=== PATIENT | male | born 1935 | race Caucasian/White ===

== ENCOUNTER 2020-07-05 20:36 | Emergency (ER) | payer MEDICARE, BC ==
[~2020-07-05] VITALS: Ht 177.8 cm; Wt 77.1 kg
[~2020-07-05 20:36] MED LIST: DABI150C PO; HYDR-4354 PO; SIMV-49 PO; TAMS0.4C34 PO; VALS1TAB4 PO; WALK1EAC55 MC
--- NOTE | 2020-07-05 20:43 | NUR ---
Patient arrived to ER via [facility] for a mechanical fall on right shoulder, RA states crepitus noted when right shoulder is moved, left hand 18g saline locked IV noted, states pain is 10/10 when shoulder is moved and 0/10 when right shoulder is moved, EKG done at this time and given to MD Adame, patient A&O X4, no signs of acute distress noted
--- NOTE | 2020-07-05 20:43 | NUR ---
MD Adame at bedside for MSE
[2020-07-05] MEDS ORDERED: CARB-93 PO (20:55)
[2020-07-05] MEDS ORDERED: VALS1TAB8 PO (20:55)
[2020-07-05] MEDS ORDERED: ROSU40TA PO (20:55)
[2020-07-05] MEDS ORDERED: APIX2.5T PO (20:55)
[2020-07-05] MEDS ORDERED: MORPHINE SULFATE 2 MG/1 ML DISP.SYRIN IV ONE (21:00)
[2020-07-05] MEDS ORDERED: ONDANSETRON 4 MG/2 ML VIAL IV ONE (21:00)
[2020-07-05] MEDS ORDERED: ONDANSETRON 4 MG/2 ML VIAL ONE (21:07)
[2020-07-05] MEDS ORDERED: MORPHINE SULFATE 2 MG/1 ML DISP.SYRIN ONE ×2 (21:07→21:28)
[2020-07-05 21:22] LABS: BASOPHILS % (AUTO) 0.6 % (0.0-2.0); EOSINOPHILS # (AUTO) 0.1 K/uL (0.0-0.7); EOSINOPHILS % (AUTO) 2.6 % (0.0-7.0); HEMATOCRIT 34.9 % (36.7-47.1); HEMOGLOBIN 11.6 g/dL (12.5-16.3); LYMPHOCYTES # (AUTO) 1.1 K/uL (20.0-40.0); LYMPHOCYTES % (AUTO) 20.6 % (20.5-51.5); MEAN CORPUSCULAR HEMOGLOBIN 32.6 uug (23.8-33.4); MEAN CORPUSCULAR HGB CONC 33 g/dL (32.5-36.3); MEAN CORPUSCULAR VOLUME 98.1 fL (73.0-96.2); MONOCYTES # (AUTO) 0.6 K/uL (2.0-10.0); MONOCYTES % (AUTO) 12.2 % (0.0-11.0); NEUTROPHILS # (AUTO) 3.3 K/uL (1.8-8.9); PLATELET COUNT (AUTO) 154 K/uL (152-348); RED BLOOD CELL COUNT(AUTO) 3.55 MIL/uL (4.06-5.63); WHITE BLOOD COUNT (AUTO) 5.2 K/uL (3.6-10.2)
[2020-07-05 21:29] LABS: CARBON DIOXIDE 24 mmol/L (21-32); CHLORIDE 102 mmol/L (98-107); CREATININE 1.6 mg/dL (0.6-1.3); GLUCOSE 105 mg/dL (74-106); POTASSIUM 3.9 mmol/L (3.5-5.1); UREA NITROGEN, BLOOD 41 mg/dL (7-18)
[2020-07-05] MEDS ORDERED: MORPHINE SULFATE 4 MG/1 ML DISP.SYRIN IV ONE (21:30)
--- NOTE | 2020-07-05 21:32 | NUR ---
PAtient being transported to radiology for Right shoulder X-ray and CT of head
[2020-07-05 21:35] LABS: ALANINE AMINOTRANSFERASE 17 U/L (16-63); ALKALINE PHOSPHATASE 45 U/L (50-136); ASPARTATE AMINOTRANSFERASE 19 U/L (15-37); BILIRUBIN,DIRECT 0.1 mg/dL (0.0-0.2); BILIRUBIN,TOTAL 0.5 mg/dL (0.2-1.0); TOTAL PROTEIN, SERUM 6.8 g/dL (6.4-8.2)
--- NOTE | 2020-07-05 21:46 | NUR ---
patient arrived for Radiology
--- NOTE | 2020-07-05 21:50 | NUR ---
sling applied to right shoulder per MD orders
--- NOTE | 2020-07-05 22:21 | NUR ---
radiology noted taking patient down to get at CT of the chest
--- NOTE | 2020-07-05 23:40 | NUR ---
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
[2020-07-06] MEDS ORDERED: ACETAMINOPHEN ES 500 MG TABLET PO ONE
--- NOTE | 2020-07-06 00:30 | NUR ---
Patient discharged to home in stable condition. Wheeled in wheelchair and assisted to car, picked patient up, rx given, instructed not to drive while taking medication, instructed to follow up with ortho and PCP. Written and verbal after care instructions given. All belongings sent with paatient. Patient verbalizes understanding of instructions. Stressed follow up or return to ER for worsening s/s.
[2020-07-06 00:46] VITALS: BP 144/65
== END 2020-07-06 00:30 | disposition home or self-care (01) ==
LOC: ER 20:38
DX: S42.111A Displaced fracture of body of scapula, right shoulder, initial encounter for closed fracture (principal); W18.30XA Fall on same level, unspecified, initial encounter; Z91.81 History of falling; Y92.89 Other specified places as the place of occurrence of the external cause; G91.2 (Idiopathic) normal pressure hydrocephalus; I48.91 Unspecified atrial fibrillation; Z95.0 Presence of cardiac pacemaker; Z95.2 Presence of prosthetic heart valve; Z79.01 Long term (current) use of anticoagulants; Z79.899 Other long term (current) drug therapy; M25.411 Effusion, right shoulder; M47.9 Spondylosis, unspecified; D64.9 Anemia, unspecified
CPT/HCPCS: 70450; 71250; 72125; 73030; 80048; 80076; 84484; 85025; 85730; 93005; 96374; 96375; 99285; J2270 ×2; J2405; 70030-TC; A4663

== ENCOUNTER 2022-01-05 21:41 | Emergency (ER) | payer MEDICARE, BC ==
[~2022-01-05] VITALS: Ht 172.7 cm; Wt 72.6 kg
[~2022-01-05 21:41] MED LIST changes: +APIX2.5T PO; +CARB-300 PO; -DABI150C PO; -HYDR-4354 PO; +ROSU40TA PO; -SIMV-49 PO; -VALS1TAB4 PO; +VALS1TAB8 PO; -WALK1EAC55 MC
--- NOTE | 2022-01-05 21:43 | NUR ---
pt bib ra for syncope. pt placed in room 1a.
--- NOTE | 2022-01-05 22:25 | NUR ---
pt taken to radiology for cat scan and cxr.
[2022-01-05 22:28] LABS: *BILIRUBIN,URIN NEGATIVE (NEGATIVE); *BLOOD, URINE NEGATIVE (NEGATIVE); *CLARITY,URINE CLEAR (CLEAR); *COLOR,URINE YELLOW (YELLOW); *KETONES,URINE NEGATIVE (NEGATIVE); *UROBILINOGEN,URINE 0.2 E.U./dl (NORMAL); LEUKOCYTE ESTERASE ,URINE NEGATIVE (NEGATIVE); NITRITE, URINE NEGATIVE (NEGATIVE); UGLUCOSE NEGATIVE (NEGATIVE)
[2022-01-05 22:42] LABS: HEMATOCRIT 37.9 % (36.7-47.1); MEAN CORPUSCULAR VOLUME 97.3 fL (73.0-96.2); PLATELET COUNT (AUTO) 184 K/uL (152-348)
--- NOTE | 2022-01-05 22:42 | NUR ---
pt returned from cat scan.
[2022-01-05 22:49] LABS: CARBON DIOXIDE 26 mmol/L (21-32); CHLORIDE 102 mmol/L (98-107); CREATININE 1.2 mg/dL (0.6-1.3); GLUCOSE 109 mg/dL (74-106); UREA NITROGEN, BLOOD 36 mg/dL (7-18)
[2022-01-05 22:53] LABS: ETHANOL 171 MG/DL (0-0)
[2022-01-05 22:54] LABS: ALANINE AMINOTRANSFERASE 21 U/L (16-63); ALKALINE PHOSPHATASE 60 U/L (50-136); ASPARTATE AMINOTRANSFERASE 24 U/L (15-37); BILIRUBIN,DIRECT 0.1 mg/dL (0.0-0.2); BILIRUBIN,TOTAL 0.5 mg/dL (0.2-1.0); TOTAL PROTEIN, SERUM 7.6 g/dL (6.4-8.2)
--- NOTE | 2022-01-06 00:11 | NUR ---
pt has been assisted to side of [facility] several times to urinate, pt has steady gait but needs assist. able to void clear yellow urine.
--- NOTE | 2022-01-06 02:21 | NUR ---
pt a/o denies pain, pt states he wants to go home. Per Dr. Romero pt is medically clear for d/c but his will pick him up in the morning.
--- NOTE | 2022-01-06 03:49 | NUR ---
Dr. Romero speaking with pt.
--- NOTE | 2022-01-06 07:03 | NUR ---
discharge instructions reviewed with pt, waiting for pt's to arrive for his d/c home. Report given to Tiffani STRNOG.
--- NOTE | 2022-01-06 07:33 | NUR ---
Patient is sitting in a chair waiting for his to pick him up. He denies dizziness, chest pain or any other problem.
--- NOTE | 2022-01-06 08:05 | NUR ---
IV removed. Catheter intact and site benign. Pressure and 4x4 gauze applied to site. No bleeding noted.
--- NOTE | 2022-01-06 08:11 | NUR ---
Patient's is here. I wheelchaired him to the car. DC and follow up instructions given and explained to patient who states he understands all instructions
[2022-01-06 08:19] VITALS: BP 127/70
== END 2022-01-06 08:19 | disposition home or self-care (01) ==
LOC: ER 21:42
DX: F10.129 Alcohol abuse with intoxication, unspecified (principal); Z95.0 Presence of cardiac pacemaker; Z79.899 Other long term (current) drug therapy; Y90.0 Blood alcohol level of less than 20 mg/100 ml; Z20.822 Contact with and (suspected) exposure to COVID-19
CPT/HCPCS: 36415; 70030-TC; 70450; 71045; 83605; 85025; 87040; 87086; 93005; A4663; G0480

== ENCOUNTER 2022-02-02 23:37 | Emergency (ER) | payer MEDICARE, BC ==
[~2022-02-02] VITALS: Ht 177.8 cm; Wt 77.1 kg
[2022-02-02] MEDS ORDERED: IV NS 1000 ML 1,000 ML IV ONE (23:45)
[2022-02-03] LABS: HEMATOCRIT 34.8 % (36.7-47.1); MEAN CORPUSCULAR HEMOGLOBIN 33.2 uug (23.8-33.4); MEAN CORPUSCULAR VOLUME 97.3 fL (73.0-96.2); PLATELET COUNT (AUTO) 185 K/uL (152-348)
[2022-02-03 00:05] LABS: CARBON DIOXIDE 22 mmol/L (21-32); CHLORIDE 102 mmol/L (98-107); CREATININE 1.6 mg/dL (0.6-1.3); GLUCOSE 120 mg/dL (74-106); POTASSIUM 3.9 mmol/L (3.5-5.1); UREA NITROGEN, BLOOD 41 mg/dL (7-18)
--- NOTE | 2022-02-03 00:08 | NUR ---
pt taken to CT via tanya
--- NOTE | 2022-02-03 00:18 | NUR ---
pt returned from CT
--- NOTE | 2022-02-03 02:20 | NUR ---
ambulated pt with walker. steady gait. no dizziness. denies pain
--- NOTE | 2022-02-03 03:11 | NUR ---
Sari ye in [facility] - 02/03/22 at 0313 by LINO An attempt to reach patient's has been made, awaiting call back.
--- NOTE | 2022-02-03 03:13 | NUR ---
An attempt to reach patient's has been made, awaiting call back.
--- NOTE | 2022-02-03 04:25 | NUR ---
Patient discharged to home in stable condition. Written and verbal after care instructions given. Patient verbalizes understanding of instructions. Stressed follow up or return to ER for worsening s/s. pt ambulated to car with walker. steady gait. denies pain. no sob. no chest pain. afebrile. AOx4
[2022-02-03 04:43] VITALS: BP 128/63
== END 2022-02-03 04:45 | disposition home or self-care (01) ==
LOC: ER 23:41
DX: I95.9 Hypotension, unspecified (principal); Z04.3 Encounter for examination and observation following other accident; R94.31 Abnormal electrocardiogram [ECG] [EKG]; Z95.0 Presence of cardiac pacemaker; Z95.2 Presence of prosthetic heart valve; Z79.01 Long term (current) use of anticoagulants; Z79.899 Other long term (current) drug therapy; I48.91 Unspecified atrial fibrillation
CPT/HCPCS: 36415; 70450; 84484; 85025; 93005; J7030

== ENCOUNTER 2023-01-06 19:46 | Inpatient (IN) | payer MEDICARE, BC ==
[~2023-01-06] VITALS: Ht 177.8 cm; Wt 69.9 kg
[2023-01-06] MEDS ORDERED: IV NORMAL SALINE 500 ML BAG IV ONE (20:15)
[2023-01-06 20:23] LABS: PLATELET COUNT (AUTO) 142 K/uL (152-348)
[2023-01-06 20:34] LABS: HEMATOCRIT 36.9 % (36.7-47.1); MEAN CORPUSCULAR HEMOGLOBIN 31.7 uug (23.8-33.4); MEAN CORPUSCULAR VOLUME 95.3 fL (73.0-96.2)
[2023-01-06 20:44] LABS: ALANINE AMINOTRANSFERASE 31 U/L (16-63); ALKALINE PHOSPHATASE 48 U/L (50-136); ASPARTATE AMINOTRANSFERASE 65 U/L (15-37); BILIRUBIN,DIRECT 0.2 mg/dL (0.0-0.2); BILIRUBIN,TOTAL 0.9 mg/dL (0.2-1.0); CARBON DIOXIDE 29 mmol/L (21-32); CHLORIDE 100 mmol/L (98-107); CREATININE 1.9 mg/dL (0.6-1.3); GLUCOSE 125 mg/dL (74-106); POTASSIUM 4.6 mmol/L (3.5-5.1); TOTAL PROTEIN, SERUM 7.6 g/dL (6.4-8.2); UREA NITROGEN, BLOOD 50 mg/dL (7-18)
[2023-01-06 21:04] LABS: NEUTROPHILS % (MANUAL) 0 % (42-75)
[2023-01-06] MEDS ORDERED: ASPIRIN 81 MG TAB.CHEW ONE (21:08)
[2023-01-06] MEDS ORDERED: ASPIRIN 81 MG TAB.CHEW PO ONE (21:15)
[2023-01-06] MEDS ORDERED: ACETAMINOPHEN 325 MG TABLET PO PRN (22:30)
[2023-01-06] MEDS ORDERED: MORPHINE SULFATE 2 MG/1 ML DISP.SYRIN IV PRN (22:30)
[2023-01-06] MEDS ORDERED: IV 1/2NS 1000 ML 1,000 ML IV PRN (22:30)
[2023-01-06] MEDS ORDERED: ONDANSETRON 4 MG/2 ML VIAL IV PRN (22:30)
[2023-01-07] MEDS ORDERED: CEFTRIAXONE 1 G in IV DEXTROSE 5% 50 ML IV SCH (00:50)
[2023-01-07] MEDS ORDERED: AZITHROMYCIN IV 500 MG in IV DEXTROSE 5% 250 ML IV SCH (00:51)
[2023-01-07 01:05] VITALS: BP 107/54
[2023-01-07] MEDS: TAMSULOSIN HCL 0.4 MG CAP.SR.24H PO SCH ×2 (01:21→20:04)
[2023-01-07] MEDS ORDERED: AZITHROMYCIN 500MG/ D5W 250ML IVPB **ER PYXIS ONLY IV ONE (02:08)
[2023-01-07] MEDS ORDERED: CEFTRIAXONE /D5W 50ML IVPB **ER PYXIS IV ONE (02:08)
[2023-01-07 04:38] VITALS: BP 104/40
[2023-01-07] MEDS: PANTOPRAZOLE SODIUM 40 MG TABLET.DR PO SCH (06:29)
[2023-01-07 06:40] LABS: HEMATOCRIT 35.1 % (36.7-47.1); MEAN CORPUSCULAR HEMOGLOBIN 31.6 uug (23.8-33.4); MEAN CORPUSCULAR VOLUME 94.9 fL (73.0-96.2); PLATELET COUNT (AUTO) 126 K/uL (152-348)
[2023-01-07 07:14] LABS: IRON, SERUM 21 ug/dL (50-175)
[2023-01-07 07:19] LABS: THYROID STIMULATING HORMONE 1.153 mIU/mL (0.358-3.740)
[2023-01-07 07:30] LABS: ALANINE AMINOTRANSFERASE 25 U/L (16-63); ALKALINE PHOSPHATASE 40 U/L (50-136); ASPARTATE AMINOTRANSFERASE 57 U/L (15-37); BILIRUBIN,TOTAL 0.7 mg/dL (0.2-1.0); CARBON DIOXIDE 26 mmol/L (21-32); CHLORIDE 101 mmol/L (98-107); CHOLESTEROL 119 mg/dL (<200); CREATININE 1.5 mg/dL (0.6-1.3); GLUCOSE 112 mg/dL (74-106); HDL CHOLESTEROL 64 mg/dL (40-60); MAGNESIUM 2.2 mg/dL (1.8-2.4); PHOSPHOROUS 4.3 mg/dL (2.5-4.9); POTASSIUM 3.7 mmol/L (3.5-5.1); TOTAL PROTEIN, SERUM 6.6 g/dL (6.4-8.2); TRIGLYCERIDES 75 MG/DL (30-150); UREA NITROGEN, BLOOD 41 mg/dL (7-18)
[2023-01-07 08:00] VITALS: BP 110/52
[2023-01-07] MEDS ORDERED: Medication Not On Formulary EA (Rosuvastatin Calcium (Crestor) 40 MG) PO SCH (09:00)
[2023-01-07] MEDS: APIXABAN 2.5 MG TABLET PO SCH ×2 (09:24→20:06)
[2023-01-07] MEDS: CARBIDOPA/LEVODOPA 25-100MG TABLET PO SCH ×4 (09:24→20:03)
[2023-01-07] MEDS: ASPIRIN EC 81 MG TABLET.DR PO SCH (09:24)
[2023-01-07 12:00] VITALS: BP 118/78
[2023-01-07 16:00] VITALS: BP 140/66
[2023-01-07 17:22] LABS: BAND % (MANUAL) 2 % (0-10)
[2023-01-07 17:24] LABS: LYMPHOCYTES % (MANUAL) 22 % (20-40); MONOCYTES % (MANUAL) 14 % (2-10); NEUTROPHILS % (MANUAL) 62 % (42-75)
[2023-01-07] MEDS: DOCUSATE SODIUM 100 MG CAPSULE PO SCH (20:04)
[2023-01-07] MEDS: ATORVASTATIN 40 MG TABLET PO SCH (20:04)
[2023-01-08 02:03] VITALS: BP 137/81
[2023-01-08] MEDS: AZITHROMYCIN IV 500 MG in IV DEXTROSE 5% 250 ML IV SCH (02:24)
[2023-01-08] MEDS: CEFTRIAXONE 1 G in IV DEXTROSE 5% 50 ML IV SCH (02:25)
[2023-01-08] MEDS: PANTOPRAZOLE SODIUM 40 MG TABLET.DR PO SCH (05:27)
[2023-01-08 06:25] LABS: HEMATOCRIT 30.8 % (36.7-47.1); MEAN CORPUSCULAR HEMOGLOBIN 31.9 uug (23.8-33.4); MEAN CORPUSCULAR VOLUME 94.5 fL (73.0-96.2); PLATELET COUNT (AUTO) 121 K/uL (152-348)
[2023-01-08 06:46] LABS: BILIRUBIN,TOTAL 0.9 mg/dL (0.2-1.0); CREATININE 1.3 mg/dL (0.6-1.3); PHOSPHOROUS 4.1 mg/dL (2.5-4.9); POTASSIUM 3.9 mmol/L (3.5-5.1); TOTAL PROTEIN, SERUM 6.2 g/dL (6.4-8.2)
[2023-01-08 07:39] LABS: MAGNESIUM 2.1 mg/dL (1.8-2.4)
[2023-01-08] MEDS: CARBIDOPA/LEVODOPA 25-100MG TABLET PO SCH ×4 (08:49→21:15)
[2023-01-08] MEDS: ASPIRIN EC 81 MG TABLET.DR PO SCH (08:49)
[2023-01-08] MEDS: APIXABAN 2.5 MG TABLET PO SCH ×2 (08:50→21:18)
[2023-01-08 10:04] LABS: NEUTROPHILS % (MANUAL) 0 % (42-75)
[2023-01-08 11:33] VITALS: BP 107/53
[2023-01-08 12:02] LABS: *BILIRUBIN,URIN NEGATIVE (NEGATIVE); *BLOOD, URINE NEGATIVE (NEGATIVE); *CLARITY,URINE CLEAR (CLEAR); *COLOR,URINE YELLOW (YELLOW); *KETONES,URINE 1+ (NEGATIVE); *UROBILINOGEN,URINE 0.2 E.U./dl (NORMAL); LEUKOCYTE ESTERASE ,URINE NEGATIVE (NEGATIVE); NITRITE, URINE NEGATIVE (NEGATIVE); UGLUCOSE TRACE (NEGATIVE)
[2023-01-08 12:20] LABS: *CREATININE,URINE 141.3 mg/dL (30-125); *URINE TOTAL PROTEIN RANDOM 55.3 mg/dL (<150/24HR)
[2023-01-08 16:27] VITALS: BP 132/55
[2023-01-08 20:47] VITALS: BP 123/61
[2023-01-08] MEDS: DOCUSATE SODIUM 100 MG CAPSULE PO SCH (21:00)
[2023-01-08] MEDS: TAMSULOSIN HCL 0.4 MG CAP.SR.24H PO SCH (21:14)
[2023-01-08] MEDS: ATORVASTATIN 40 MG TABLET PO SCH (21:14)
[2023-01-09 00:06] VITALS: BP 131/60
[2023-01-09] MEDS: CEFTRIAXONE 1 G in IV DEXTROSE 5% 50 ML IV SCH (01:26)
[2023-01-09] MEDS: AZITHROMYCIN IV 500 MG in IV DEXTROSE 5% 250 ML IV SCH (02:11)
[2023-01-09 04:55] VITALS: BP 133/64
[2023-01-09] MEDS: PANTOPRAZOLE SODIUM 40 MG TABLET.DR PO SCH (06:20)
[2023-01-09 07:12] LABS: MEAN CORPUSCULAR HEMOGLOBIN 31.6 uug (23.8-33.4); PLATELET COUNT (AUTO) 123 K/uL (152-348)
[2023-01-09 07:36] LABS: ALANINE AMINOTRANSFERASE 11 U/L (16-63); ALKALINE PHOSPHATASE 41 U/L (50-136); ASPARTATE AMINOTRANSFERASE 38 U/L (15-37); BILIRUBIN,TOTAL 0.7 mg/dL (0.2-1.0); CARBON DIOXIDE 27 mmol/L (21-32); CHLORIDE 105 mmol/L (98-107); CREATININE 1.2 mg/dL (0.6-1.3); GLUCOSE 108 mg/dL (74-106); MAGNESIUM 2.2 mg/dL (1.8-2.4); PHOSPHOROUS 4.1 mg/dL (2.5-4.9); TOTAL PROTEIN, SERUM 6.4 g/dL (6.4-8.2); UREA NITROGEN, BLOOD 24 mg/dL (7-18)
[2023-01-09 07:43] LABS: BAND % (MANUAL) 2 % (0-10); LYMPHOCYTES % (MANUAL) 22 % (20-40)
[2023-01-09 07:44] LABS: EOSINOPHILS % (MANUAL) 4 % (0-8); MONOCYTES % (MANUAL) 10 % (2-10); NEUTROPHILS % (MANUAL) 62 % (42-75)
[2023-01-09] MEDS: ASPIRIN EC 81 MG TABLET.DR PO SCH (08:47)
[2023-01-09] MEDS: CARBIDOPA/LEVODOPA 25-100MG TABLET PO SCH ×4 (08:49→20:41)
[2023-01-09] MEDS: APIXABAN 2.5 MG TABLET PO SCH ×2 (08:49→21:15)
[2023-01-09] MEDS ORDERED: GUAIFENESIN LA 600 MG TABLET.SA PO PRN (10:30)
[2023-01-09 11:51] VITALS: BP 125/53
[2023-01-09 16:49] VITALS: BP 122/75
[2023-01-09 20:00] VITALS: BP 127/61
[2023-01-09] MEDS: TAMSULOSIN HCL 0.4 MG CAP.SR.24H PO SCH (20:41)
[2023-01-09] MEDS: DOCUSATE SODIUM 100 MG CAPSULE PO SCH (20:41)
[2023-01-09] MEDS: ATORVASTATIN 40 MG TABLET PO SCH (20:41)
[2023-01-10] VITALS: BP 130/57
[2023-01-10] MEDS: CEFTRIAXONE 1 G in IV DEXTROSE 5% 50 ML IV SCH (02:20)
[2023-01-10] MEDS: AZITHROMYCIN IV 500 MG in IV DEXTROSE 5% 250 ML IV SCH (03:05)
[2023-01-10 04:00] VITALS: BP 143/54
[2023-01-10] MEDS: PANTOPRAZOLE SODIUM 40 MG TABLET.DR PO SCH (06:29)
[2023-01-10] MEDS: ASPIRIN EC 81 MG TABLET.DR PO SCH (09:45)
[2023-01-10] MEDS: APIXABAN 2.5 MG TABLET PO SCH ×2 (09:45→22:03)
[2023-01-10] MEDS: CARBIDOPA/LEVODOPA 25-100MG TABLET PO SCH ×4 (09:45→21:47)
[2023-01-10 11:40] VITALS: BP 140/61
[2023-01-10 17:01] VITALS: BP 148/47
[2023-01-10 20:00] VITALS: BP 135/60
[2023-01-10] MEDS: ATORVASTATIN 40 MG TABLET PO SCH (21:47)
[2023-01-10] MEDS: TAMSULOSIN HCL 0.4 MG CAP.SR.24H PO SCH (21:47)
[2023-01-10] MEDS: DOCUSATE SODIUM 100 MG CAPSULE PO SCH (21:48)
[2023-01-11] VITALS: BP 131/56
[2023-01-11] MEDS: CEFTRIAXONE 1 G in IV DEXTROSE 5% 50 ML IV SCH (02:09)
[2023-01-11] MEDS: AZITHROMYCIN IV 500 MG in IV DEXTROSE 5% 250 ML IV SCH (02:41)
[2023-01-11 04:00] VITALS: BP 122/59
[2023-01-11] MEDS: PANTOPRAZOLE SODIUM 40 MG TABLET.DR PO SCH (06:07)
[2023-01-11] MEDS: APIXABAN 2.5 MG TABLET PO SCH (09:00)
[2023-01-11] MEDS: CARBIDOPA/LEVODOPA 25-100MG TABLET PO SCH ×2 (09:35→13:00)
[2023-01-11] MEDS: ASPIRIN EC 81 MG TABLET.DR PO SCH (09:35)
[2023-01-11 12:03] VITALS: BP 135/61
== END 2023-01-11 15:25 | DRG 177 ==
LOC: ER 19:46 → TELE3 21:20
PROVIDERS: ADMIT Internal Medicine; ATTEND Internal Medicine
DX: U07.1 COVID-19 (principal); I21.A1 Myocardial infarction type 2; J12.82 Pneumonia due to coronavirus disease 2019; J15.9 Unspecified bacterial pneumonia; N17.0 Acute kidney failure with tubular necrosis; E87.1 Hypo-osmolality and hyponatremia; I48.20 Chronic atrial fibrillation, unspecified; I48.92 Unspecified atrial flutter; I50.32 Chronic diastolic (congestive) heart failure; R29.6 Repeated falls; G20 Parkinson's disease; F02.80 Dementia in other diseases classified elsewhere, unspecified severity, without behavioral disturbance, psychotic disturbance, mood disturbance, and anxiety; N40.0 Benign prostatic hyperplasia without lower urinary tract symptoms; E78.5 Hyperlipidemia, unspecified; Z95.2 Presence of prosthetic heart valve; Z95.0 Presence of cardiac pacemaker; M89.8X9 Other specified disorders of bone, unspecified site; M51.36 Other intervertebral disc degeneration, lumbar region; Z79.01 Long term (current) use of anticoagulants; G89.29 Other chronic pain; D50.9 Iron deficiency anemia, unspecified; I25.10 Atherosclerotic heart disease of native coronary artery without angina pectoris; I11.0 Hypertensive heart disease with heart failure; Z86.718 Personal history of other venous thrombosis and embolism
CPT/HCPCS: 36415; 70030-TC; 71045; 72170; 76770; 83550; 83735; 84100; 84153; 84156; 84300; 84443; 84484; 85025; 85610; 87040; 93005; 93307; A4663; G0378; J0456; J0696; J7040; J7050

== ENCOUNTER 2023-11-03 20:06 | Inpatient (IN) | payer MEDICARE, BC ==
[~2023-11-03] VITALS: Ht 177.8 cm; Wt 72.6 kg
[2023-11-03] MEDS ORDERED: ALBUTEROL SULFATE 2.5 MG/3 ML NEBU ONE (20:10)
[2023-11-03] MEDS ORDERED: IPRATROPIUM BROMIDE 0.5 MG/2.5 ML NEBU ONE (20:11)
[2023-11-03 20:15] VITALS: O2SAT 94
[2023-11-03] MEDS ORDERED: methylPREDNISolone SOD SUCC 125 MG/2 ML VIAL IV ONE (20:15)
[2023-11-03] MEDS ORDERED: ALBUTEROL SULFATE 2.5 MG/3 ML NEBU NEB ONE (20:15)
[2023-11-03] MEDS ORDERED: IPRATROPIUM BROMIDE 0.5 MG/2.5 ML NEBU NEB ONE (20:15)
[2023-11-03] MEDS ORDERED: ASPIRIN 81 MG TAB.CHEW PO ONE (20:15)
[2023-11-03 20:22] VITALS: O2SAT 98
[2023-11-03 20:30] VITALS: O2SAT 98
[2023-11-03 20:35] LABS: BASOPHILS # (AUTO) 0.1 K/UL (0.0-0.2); BASOPHILS % (AUTO) 1.2 % (0.0-2.0); EOSINOPHILS % (AUTO) 0.1 % (0.0-7.0); HEMATOCRIT 32.5 % (36.7-47.1); LYMPHOCYTES # (AUTO) 1.4 K/uL (0.8-4.8); MEAN CORPUSCULAR HEMOGLOBIN 32.7 uug (23.8-33.4); MEAN CORPUSCULAR HGB CONC 34 g/dL (32.5-36.3); MEAN CORPUSCULAR VOLUME 96.5 fL (73.0-96.2); MONOCYTES # (AUTO) 1.1 K/uL (0.1-1.30); MONOCYTES % (AUTO) 19.2 % (0.0-11.0); NEUTROPHILS # (AUTO) 3.4 K/uL (1.8-8.9); NEUTROPHILS % (AUTO) 56.5 % (38.5-71.5); PLATELET COUNT (AUTO) 153 K/uL (152-348); RED BLOOD CELL COUNT(AUTO) 3.37 MIL/uL (4.06-5.63); RED CELL DISTRIBUTION WIDTH 14.5 % (12.1-16.2); WHITE BLOOD COUNT (AUTO) 5.9 K/uL (3.6-10.2)
[2023-11-03 20:45] LABS: DIFFERENTIAL COMMENT 1
[2023-11-03 20:57] LABS: ALANINE AMINOTRANSFERASE 22 U/L (16-63); ALBUMIN 4.1 g/dL (3.4-5.0); ALKALINE PHOSPHATASE 51 U/L (50-136); ASPARTATE AMINOTRANSFERASE 24 U/L (15-37); BILIRUBIN,DIRECT 0.3 mg/dL (0.0-0.2); BILIRUBIN,TOTAL 1.3 mg/dL (0.2-1.0); CALCIUM 9.1 mg/dL (8.5-10.1); CARBON DIOXIDE 20 mmol/L (21-32); CHLORIDE 100 mmol/L (98-107); CREATININE 2.2 mg/dL (0.6-1.3); GLUCOSE 190 mg/dL (74-106); NT-PRO BNP 7166 pg/mL (0-125); POTASSIUM 3.9 mmol/L (3.5-5.1); SODIUM SERUM 136 mmol/L (136-145); TOTAL PROTEIN, SERUM 7.5 g/dL (6.4-8.2); UREA NITROGEN, BLOOD 46 mg/dL (7-18)
[2023-11-03 21:00] LABS: LACTIC ACID 3.8 mmol/L (0.4-2.0)
[2023-11-03] MEDS ORDERED: NITROGLYCERIN OINT 1 GM PACKET TP ONE ×2 (21:00→21:11)
[2023-11-03 21:02] LABS: ABG BASE EXCESS -4.8 mmol/L (-2.0-2.0); ABG HCO3 17.7 mmol/L (22.0-26.0); ABG PCO2 25.1 mmHg (35.0-48.0); ABG PH 7.466 (7.340-7.440); ABG PO2 97.8 mmHg (75.0-100.0); ABG TOTAL HEMOGLOBIN 10.6 G/dL (14.0-18.0); AaDO2 97.9 mmHg; COHb 0.3 % (0.0-3.9); MetHb 0.2 % (0.0-1.5); O2Hb 96.9 % (94.0-97.0)
[2023-11-03] MEDS ORDERED: ASPIRIN 81 MG TAB.CHEW ONE ×2 (21:10)
[2023-11-03] MEDS ORDERED: methylPREDNISolone SOD SUCC 125 MG/2 ML VIAL ONE (21:12)
[2023-11-03] MEDS ORDERED: ENOXAPARIN SODIUM 80 MG/0.8 ML DISP.SYRIN SQ ONE ×2 (21:29→21:30)
[2023-11-03] MEDS ORDERED: FUROSEMIDE 20 MG/2 ML VIAL IV ONE (22:15)
[2023-11-03] MEDS ORDERED: POTASSIUM CHLORIDE 20 MEQ TAB.PRT.SR PO ONE (22:15)
[2023-11-03] MEDS ORDERED: FUROSEMIDE 40 MG/4 ML VIAL ONE (22:24)
[2023-11-03] MEDS ORDERED: FUROSEMIDE 20 MG/2 ML VIAL ONE (22:24)
[2023-11-03] MEDS ORDERED: POTASSIUM CHLORIDE 20 MEQ POWDER PACKET ONE ×2 (22:25)
[2023-11-03] MEDS ORDERED: LIDOCAINE 2% (GLYDO= UROJET) 10 ML JELLY MM ONE ×2 (22:40→22:45)
[2023-11-03 22:43] LABS: BAND % (MANUAL) 3 % (0-10); LYMPHOCYTES % (MANUAL) 22 % (20-40); MONOCYTES % (MANUAL) 16 % (2-10); NEUTROPHILS % (MANUAL) 59 % (42-75); PLATELET ESTIMATE ADEQUATE
[2023-11-03 22:44] LABS: ANISOCYTOSIS 1+; GIANT PLATELETS 1
[2023-11-03] MEDS ORDERED: MAGNESIUM HYDROXIDE 30 ML LIQUID UDC PO PRN (23:00)
[2023-11-03] MEDS ORDERED: DEXTROSE 50% 50 ML DISP.SYRIN IV PRN (23:00)
[2023-11-03] MEDS ORDERED: ACETAMINOPHEN 325 MG TABLET PO PRN (23:00)
[2023-11-03] MEDS ORDERED: REMEDY ESSENTIAL ZINC PASTE 113 GM TP PRN (23:00)
[2023-11-03] MEDS ORDERED: ONDANSETRON 4 MG/2 ML VIAL IV PRN (23:00)
[2023-11-03] MEDS ORDERED: NITROGLYCERIN 0.4 MG/TAB BOTTLE SL PRN (23:00)
[2023-11-03] MEDS ORDERED: MORPHINE SULFATE 2 MG/1 ML DISP.SYRIN IV PRN (23:00)
[2023-11-03] MEDS ORDERED: IV NORMAL SALINE 500 ML IV ONE (23:15)
[2023-11-04] VITALS (7 sets, daily range): BP systolic 99–141; BP diastolic 48–95; TEMP 98–98.6; O2SAT 95–98
[2023-11-04] MEDS: BLOOD SUGAR DIAGNOSTIC 1 EACH STRIP VI SCH ×4 (06:39→21:17)
[2023-11-04 06:53] LABS: BASOPHILS % (AUTO) 0.2 % (0.0-2.0); HEMOGLOBIN 9.3 g/dL (12.5-16.3); LYMPHOCYTES # (AUTO) 0.2 K/uL (0.8-4.8); MEAN CORPUSCULAR HEMOGLOBIN 32.9 uug (23.8-33.4); MEAN CORPUSCULAR HGB CONC 34 g/dL (32.5-36.3); MEAN CORPUSCULAR VOLUME 95.9 fL (73.0-96.2); MONOCYTES # (AUTO) 0.2 K/uL (0.1-1.30); MONOCYTES % (AUTO) 5.1 % (0.0-11.0); NEUTROPHILS % (AUTO) 87.7 % (38.5-71.5); PLATELET COUNT (AUTO) 125 K/uL (152-348); RED BLOOD CELL COUNT(AUTO) 2.82 MIL/uL (4.06-5.63); RED CELL DISTRIBUTION WIDTH 14.7 % (12.1-16.2); WHITE BLOOD COUNT (AUTO) 3.4 K/uL (3.6-10.2)
[2023-11-04 07:09] LABS: DIFFERENTIAL COMMENT 1
[2023-11-04 07:11] LABS: CALCIUM 8.3 mg/dL (8.5-10.1); CARBON DIOXIDE 23 mmol/L (21-32); CHLORIDE 104 mmol/L (98-107); CREATININE 2.3 mg/dL (0.6-1.3); GLUCOSE 198 mg/dL (74-106); MAGNESIUM 2.2 mg/dL (1.8-2.4); PHOSPHOROUS 3.7 mg/dL (2.5-4.9); POTASSIUM 4.2 mmol/L (3.5-5.1); SODIUM SERUM 139 mmol/L (136-145); UREA NITROGEN, BLOOD 52 mg/dL (7-18)
[2023-11-04] MEDS: INSULIN REGULAR, HUMAN 300 UNIT/3 ML VIAL SQ PRN ×2 (08:24→17:22)
[2023-11-04] MEDS: ASPIRIN 81 MG TAB.CHEW PO SCH (08:33)
[2023-11-04] MEDS: APIXABAN 2.5 MG TABLET PO SCH ×2 (08:33→21:20)
[2023-11-04] MEDS: CARBIDOPA/LEVODOPA 25-100MG TABLET PO SCH ×4 (08:33→21:00)
[2023-11-04] MEDS ORDERED: FUROSEMIDE 40 MG/4 ML VIAL IV SCH (09:00)
[2023-11-04] MEDS: methylPREDNISolone SOD SUCC 40 MG/ML VIAL IV SCH ×2 (13:47→22:55)
[2023-11-04 16:02] LABS: *BILIRUBIN,URIN NEGATIVE (NEGATIVE); *BLOOD, URINE 3+ (NEGATIVE); *COLOR,URINE YELLOW (YELLOW); *KETONES,URINE NEGATIVE (NEGATIVE); *PROTEIN,URINE 2+ (NEGATIVE); *UROBILINOGEN,URINE 0.2 E.U./dl (NORMAL); LEUKOCYTE ESTERASE ,URINE TRACE (NEGATIVE); NITRITE, URINE NEGATIVE (NEGATIVE); UGLUCOSE NEGATIVE (NEGATIVE)
[2023-11-04 16:03] LABS: *CLARITY,URINE SLIGHTLY CLOUDY (CLEAR)
[2023-11-04 16:14] LABS: *URINE TOTAL PROTEIN RANDOM 56.7 mg/dL (<150/24HR)
[2023-11-04 16:22] LABS: BACTERIA,URINE FEW /HPF (NONE SEEN); MUCUS,URINE MANY /LPF (0-FEW); RBC,URINE TNTC /HPF (0-3); SQUAMOUS EPITHELIAL CELL,UR NONE SEEN /HPF (NONE SEEN)
[2023-11-04] MEDS: TAMSULOSIN HCL 0.4 MG CAP.SR.24H PO SCH (21:17)
[2023-11-04] MEDS: REMEDY ESSENTIAL ZINC PASTE 113 GM TP SCH (21:18)
[2023-11-05] VITALS (9 sets, daily range): BP systolic 114–161; BP diastolic 55–64; TEMP 97.9–98.3; O2SAT 94–98
[2023-11-05] MEDS: ALBUTEROL SULFATE 2.5 MG/ 0.5 ML NEBU NEB PRN ×2 (03:23→15:50)
[2023-11-05] MEDS: methylPREDNISolone SOD SUCC 40 MG/ML VIAL IV SCH ×3 (05:05→22:18)
[2023-11-05] MEDS: BLOOD SUGAR DIAGNOSTIC 1 EACH STRIP VI SCH ×4 (06:07→21:16)
[2023-11-05] MEDS ORDERED: NITROGLYCERIN 0.4 MG/TAB BOTTLE SL PRN (06:07)
[2023-11-05 06:51] LABS: BASOPHILS % (AUTO) 0.1 % (0.0-2.0); HEMATOCRIT 30.4 % (36.7-47.1); HEMOGLOBIN 10.3 g/dL (12.5-16.3); LYMPHOCYTES # (AUTO) 0.4 K/uL (0.8-4.8); LYMPHOCYTES % (AUTO) 4.6 % (20.5-51.5); MEAN CORPUSCULAR HEMOGLOBIN 32.7 uug (23.8-33.4); MEAN CORPUSCULAR HGB CONC 34 g/dL (32.5-36.3); MEAN CORPUSCULAR VOLUME 96.6 fL (73.0-96.2); MONOCYTES # (AUTO) 0.6 K/uL (0.1-1.30); MONOCYTES % (AUTO) 6.7 % (0.0-11.0); NEUTROPHILS # (AUTO) 8.2 K/uL (1.8-8.9); NEUTROPHILS % (AUTO) 88.6 % (38.5-71.5); PLATELET COUNT (AUTO) 145 K/uL (152-348); RED BLOOD CELL COUNT(AUTO) 3.15 MIL/uL (4.06-5.63); RED CELL DISTRIBUTION WIDTH 14.6 % (12.1-16.2); WHITE BLOOD COUNT (AUTO) 9.3 K/uL (3.6-10.2)
[2023-11-05 07:08] LABS: ALANINE AMINOTRANSFERASE 8 U/L (16-63); ALBUMIN 3.5 g/dL (3.4-5.0); ALKALINE PHOSPHATASE 38 U/L (50-136); ASPARTATE AMINOTRANSFERASE 26 U/L (15-37); BILIRUBIN,TOTAL 0.5 mg/dL (0.2-1.0); CALCIUM 8.6 mg/dL (8.5-10.1); CARBON DIOXIDE 23 mmol/L (21-32); CHLORIDE 105 mmol/L (98-107); CREATINE KINASE, TOTAL 314 U/L (39-308); CREATININE 2.1 mg/dL (0.6-1.3); GLUCOSE 162 mg/dL (74-106); MAGNESIUM 2.4 mg/dL (1.8-2.4); PHOSPHOROUS 5.4 mg/dL (2.5-4.9); POTASSIUM 4.7 mmol/L (3.5-5.1); SODIUM SERUM 139 mmol/L (136-145); TOTAL PROTEIN, SERUM 6.8 g/dL (6.4-8.2); UREA NITROGEN, BLOOD 65 mg/dL (7-18)
[2023-11-05 07:16] LABS: DIFFERENTIAL COMMENT 1
[2023-11-05] MEDS: INSULIN REGULAR, HUMAN 300 UNIT/3 ML VIAL SQ PRN ×2 (08:12→16:49)
[2023-11-05] MEDS: APIXABAN 2.5 MG TABLET PO SCH ×2 (08:13→21:12)
[2023-11-05] MEDS: CARBIDOPA/LEVODOPA 25-100MG TABLET PO SCH ×3 (08:49→16:18)
[2023-11-05] MEDS: REMEDY ESSENTIAL ZINC PASTE 113 GM TP SCH ×2 (08:49→21:12)
[2023-11-05] MEDS: ASPIRIN 81 MG TAB.CHEW PO SCH (08:49)
[2023-11-05] MEDS ORDERED: TRAZ-182 PO (14:26)
[2023-11-05] MEDS ORDERED: CARB1TAB39 PO (16:33)
[2023-11-05] MEDS: TRAZODONE 50 MG TABLET PO SCH (17:03)
[2023-11-05] MEDS: TAMSULOSIN HCL 0.4 MG CAP.SR.24H PO SCH (21:12)
[2023-11-05] MEDS: INSULIN REGULAR, HUMAN 300 UNITS/3 ML VIAL SQ PRN (21:18)
[2023-11-06] VITALS (8 sets, daily range): BP systolic 113–135; BP diastolic 51–65; TEMP 97.8–98.2; O2SAT 94–99
[2023-11-06] MEDS: ALBUTEROL SULFATE 2.5 MG/ 0.5 ML NEBU NEB PRN ×2 (01:57→15:39)
[2023-11-06] MEDS: methylPREDNISolone SOD SUCC 40 MG/ML VIAL IV SCH ×3 (06:46→22:14)
[2023-11-06] MEDS: BLOOD SUGAR DIAGNOSTIC 1 EACH STRIP VI SCH ×4 (06:51→20:41)
[2023-11-06 08:08] LABS: PTH, INTACT 84 pg/mL (15-65)
[2023-11-06] MEDS: INSULIN REGULAR, HUMAN 300 UNIT/3 ML VIAL SQ PRN ×3 (08:11→16:59)
[2023-11-06] MEDS: APIXABAN 2.5 MG TABLET PO SCH ×2 (08:12→20:44)
[2023-11-06] MEDS: CARBIDOPA/LEVODOPA CR 25-100MG TABLET.SA PO SCH ×2 (08:12→17:00)
[2023-11-06] MEDS: ASPIRIN 81 MG TAB.CHEW PO SCH (08:12)
[2023-11-06] MEDS: REMEDY ESSENTIAL ZINC PASTE 113 GM TP SCH ×2 (08:30→21:02)
[2023-11-06 10:11] LABS: A/G RATIO 0.9 (0.7-1.7); ALBUMIN 2.8 g/dL (2.9-4.4); ALPHA-1-GLOBULIN 0.2 g/dL (0.0-0.4); ALPHA-2-GLOBULIN 0.8 g/dL (0.4-1.0); BETA GLOBULIN 0.7 g/dL (0.7-1.3); GAMMA GLOBULIN 1.4 g/dL (0.4-1.8); GLOBULIN, TOTAL 3.2 g/dL (2.2-3.9); M-SPIKE Not Observed g/dL (Not Observed)
[2023-11-06] MEDS: MINERAL OIL/PETROLATUM,WHITE 57 GM TUBE TOP SCH (14:12)
[2023-11-06 15:59] LABS: ALANINE AMINOTRANSFERASE 24 U/L (16-63); ALBUMIN 3.6 g/dL (3.4-5.0); ALKALINE PHOSPHATASE 36 U/L (50-136); ASPARTATE AMINOTRANSFERASE 26 U/L (15-37); BILIRUBIN,TOTAL 0.6 mg/dL (0.2-1.0); CALCIUM 9.2 mg/dL (8.5-10.1); CARBON DIOXIDE 24 mmol/L (21-32); CHLORIDE 103 mmol/L (98-107); CREATININE 1.8 mg/dL (0.6-1.3); GLUCOSE 145 mg/dL (74-106); MAGNESIUM 2.6 mg/dL (1.8-2.4); PHOSPHOROUS 4.4 mg/dL (2.5-4.9); POTASSIUM 4.7 mmol/L (3.5-5.1); SODIUM SERUM 138 mmol/L (136-145); TOTAL PROTEIN, SERUM 6.9 g/dL (6.4-8.2); UREA NITROGEN, BLOOD 74 mg/dL (7-18)
[2023-11-06 16:08] LABS: BASOPHILS % (AUTO) 0.2 % (0.0-2.0); DIFFERENTIAL COMMENT 0; HEMATOCRIT 31.5 % (36.7-47.1); HEMOGLOBIN 10.5 g/dL (12.5-16.3); LYMPHOCYTES # (AUTO) 0.4 K/uL (0.8-4.8); LYMPHOCYTES % (AUTO) 7.7 % (20.5-51.5); MEAN CORPUSCULAR HEMOGLOBIN 32.3 uug (23.8-33.4); MEAN CORPUSCULAR HGB CONC 33 g/dL (32.5-36.3); MEAN CORPUSCULAR VOLUME 96.8 fL (73.0-96.2); MONOCYTES # (AUTO) 0.4 K/uL (0.1-1.30); MONOCYTES % (AUTO) 7.1 % (0.0-11.0); NEUTROPHILS # (AUTO) 4.8 K/uL (1.8-8.9); PLATELET COUNT (AUTO) 154 K/uL (152-348); RED BLOOD CELL COUNT(AUTO) 3.25 MIL/uL (4.06-5.63); RED CELL DISTRIBUTION WIDTH 14.9 % (12.1-16.2); WHITE BLOOD COUNT (AUTO) 5.6 K/uL (3.6-10.2)
[2023-11-06] MEDS: TRAZODONE 50 MG TABLET PO SCH (17:00)
[2023-11-06] MEDS: INSULIN REGULAR, HUMAN 300 UNITS/3 ML VIAL SQ PRN (20:44)
[2023-11-06] MEDS: TAMSULOSIN HCL 0.4 MG CAP.SR.24H PO SCH (21:05)
[2023-11-07 01:35] VITALS: O2SAT 98
[2023-11-07 04:00] VITALS: BP 129/60; TEMP 98.2; O2SAT 96
[2023-11-07] MEDS: methylPREDNISolone SOD SUCC 40 MG/ML VIAL IV SCH ×2 (06:07→14:50)
[2023-11-07 07:26] LABS: HEMATOCRIT 30.9 % (36.7-47.1); HEMOGLOBIN 10.6 g/dL (12.5-16.3); LYMPHOCYTES # (AUTO) 0.4 K/uL (0.8-4.8); LYMPHOCYTES % (AUTO) 7.5 % (20.5-51.5); MEAN CORPUSCULAR HEMOGLOBIN 32.7 uug (23.8-33.4); MEAN CORPUSCULAR HGB CONC 34 g/dL (32.5-36.3); MEAN CORPUSCULAR VOLUME 95.5 fL (73.0-96.2); MONOCYTES # (AUTO) 0.4 K/uL (0.1-1.30); MONOCYTES % (AUTO) 6.6 % (0.0-11.0); NEUTROPHILS % (AUTO) 85.9 % (38.5-71.5); PLATELET COUNT (AUTO) 158 K/uL (152-348); RED BLOOD CELL COUNT(AUTO) 3.23 MIL/uL (4.06-5.63); RED CELL DISTRIBUTION WIDTH 14.2 % (12.1-16.2); WHITE BLOOD COUNT (AUTO) 5.8 K/uL (3.6-10.2)
[2023-11-07 07:32] LABS: DIFFERENTIAL COMMENT 1
[2023-11-07] MEDS: BLOOD SUGAR DIAGNOSTIC 1 EACH STRIP VI SCH ×3 (07:33→17:16)
[2023-11-07 07:39] LABS: THYROID STIMULATING HORMONE 0.533 mIU/mL (0.358-3.740)
[2023-11-07 07:41] LABS: IRON, SERUM 57 ug/dL (50-175)
[2023-11-07] MEDS: INSULIN REGULAR, HUMAN 300 UNIT/3 ML VIAL SQ PRN (07:51)
[2023-11-07 07:55] LABS: ALANINE AMINOTRANSFERASE 19 U/L (16-63); ALBUMIN 3.5 g/dL (3.4-5.0); ALKALINE PHOSPHATASE 36 U/L (50-136); ASPARTATE AMINOTRANSFERASE 25 U/L (15-37); BILIRUBIN,TOTAL 0.6 mg/dL (0.2-1.0); CARBON DIOXIDE 24 mmol/L (21-32); CHLORIDE 103 mmol/L (98-107); CHOLESTEROL 136 mg/dL (<200); CREATININE 1.6 mg/dL (0.6-1.3); GLUCOSE 140 mg/dL (74-106); HDL CHOLESTEROL 65 mg/dL (40-60); MAGNESIUM 2.7 mg/dL (1.8-2.4); PHOSPHOROUS 5.3 mg/dL (2.5-4.9); POTASSIUM 4.5 mmol/L (3.5-5.1); SODIUM SERUM 138 mmol/L (136-145); TOTAL PROTEIN, SERUM 6.8 g/dL (6.4-8.2); TRIGLYCERIDES 102 MG/DL (30-150); UREA NITROGEN, BLOOD 68 mg/dL (7-18)
[2023-11-07 08:00] VITALS: BP 124/60; TEMP 97.6
[2023-11-07] MEDS: ASPIRIN 81 MG TAB.CHEW PO SCH (08:47)
[2023-11-07] MEDS: CARBIDOPA/LEVODOPA CR 25-100MG TABLET.SA PO SCH ×2 (08:47→17:18)
[2023-11-07] MEDS: APIXABAN 2.5 MG TABLET PO SCH (08:47)
[2023-11-07] MEDS: REMEDY ESSENTIAL ZINC PASTE 113 GM TP SCH (08:48)
[2023-11-07] MEDS: MINERAL OIL/PETROLATUM,WHITE 57 GM TUBE TOP SCH (08:49)
[2023-11-07 12:00] VITALS: BP 114/65; TEMP 97.6; O2SAT 96
[2023-11-07] MEDS ORDERED: PANT40TA2 PO (14:28)
[2023-11-07] MEDS ORDERED: METH4TAB3 PO (14:28)
[2023-11-07] MEDS ORDERED: ROSU20TA2 PO (14:28)
[2023-11-07] MEDS ORDERED: ASPI-1101 PO (14:28)
[2023-11-07] MEDS ORDERED: ALBU8.5H8 INH (14:29)
== END 2023-11-07 17:15 | disposition home health service (06) | DRG 189 ==
LOC: ER 20:06 → TELE3 23:49 → MEDSURG3 11-05 09:30 → MED 11-07 08:01
PROVIDERS: ADMIT Internal Medicine; ATTEND Internal Medicine
DX: J96.01 Acute respiratory failure with hypoxia (principal); I21.A1 Myocardial infarction type 2; N17.0 Acute kidney failure with tubular necrosis; I50.31 Acute diastolic (congestive) heart failure; E87.20 Acidosis, unspecified; I48.20 Chronic atrial fibrillation, unspecified; I13.0 Hypertensive heart and chronic kidney disease with heart failure and stage 1 through stage 4 chronic kidney disease, or unspecified chronic kidney disease; G91.2 (Idiopathic) normal pressure hydrocephalus; J98.01 Acute bronchospasm; G20.A1 Parkinson's disease without dyskinesia, without mention of fluctuations; D53.9 Nutritional anemia, unspecified; N40.0 Benign prostatic hyperplasia without lower urinary tract symptoms; Z79.01 Long term (current) use of anticoagulants; Z86.16 Personal history of COVID-19; Z95.2 Presence of prosthetic heart valve; Z95.0 Presence of cardiac pacemaker; N18.9 Chronic kidney disease, unspecified; F03.90 Unspecified dementia, unspecified severity, without behavioral disturbance, psychotic disturbance, mood disturbance, and anxiety; I05.0 Rheumatic mitral stenosis; Z20.822 Contact with and (suspected) exposure to COVID-19; J40 Bronchitis, not specified as acute or chronic; F02.80 Dementia in other diseases classified elsewhere, unspecified severity, without behavioral disturbance, psychotic disturbance, mood disturbance, and anxiety; T38.0X5A Adverse effect of glucocorticoids and synthetic analogues, initial encounter; R73.9 Hyperglycemia, unspecified; J06.9 Acute upper respiratory infection, unspecified; Y92.89 Other specified places as the place of occurrence of the external cause
CPT/HCPCS: 36415; 36600; 70030-TC; 71045; 76770; 83550; 83605; 83735; 83970; 84100; 84155; 84165; 84300; 84443; 84484; 85025; 87040; 93005; 93307; 94640; G0378; J1650; J1815; J1940; J2920; J2930; J3590; J7040

== ENCOUNTER 2023-11-13 00:04 | Inpatient (IN) | payer MEDICARE, BC ==
[~2023-11-13] VITALS: Ht 165.1 cm; Wt 70.8 kg
[2023-11-13] VITALS (28 sets, daily range): BP systolic 47–161; BP diastolic 26–141; TEMP 99–99.8; O2SAT 95
[~2023-11-13 00:04] MED LIST changes: +ALBU8.5H8 INH; +ASPI-1101 PO; -CARB-300 PO; +CARB1TAB39 PO; +METH4TAB3 PO; +PANT40TA2 PO; +ROSU20TA2 PO; -ROSU40TA PO; +TRAZ-182 PO; -VALS1TAB8 PO
[2023-11-13] MEDS ORDERED: IBUPROFEN 400 MG TABLET ONE (00:10)
[2023-11-13] MEDS ORDERED: CLINDAMYCIN HCL 300 MG CAPSULE ONE (00:10)
[2023-11-13] MEDS ORDERED: ACETAMINOPHEN ES 500 MG TABLET ONE ×2 (00:10→00:11)
[2023-11-13] MEDS ORDERED: NITROGLYCERIN OINT 1 GM PACKET TP ONE ×2 (00:15→00:19)
[2023-11-13] MEDS ORDERED: FUROSEMIDE 20 MG/2 ML VIAL IVP ONE (00:15)
[2023-11-13] MEDS ORDERED: FUROSEMIDE 40 MG/4 ML VIAL ONE (00:25)
[2023-11-13 00:32] LABS: BASOPHILS # (AUTO) 0.5 K/UL (0.0-0.2); BASOPHILS % (AUTO) 1.8 % (0.0-2.0); HEMATOCRIT 30.5 % (36.7-47.1); HEMOGLOBIN 10.1 g/dL (12.5-16.3); LYMPHOCYTES # (AUTO) 0.5 K/uL (0.8-4.8); LYMPHOCYTES % (AUTO) 1.7 % (20.5-51.5); MEAN CORPUSCULAR HEMOGLOBIN 32.2 uug (23.8-33.4); MEAN CORPUSCULAR HGB CONC 33 g/dL (32.5-36.3); MEAN CORPUSCULAR VOLUME 97.4 fL (73.0-96.2); MONOCYTES # (AUTO) 1.5 K/uL (0.1-1.30); MONOCYTES % (AUTO) 5.2 % (0.0-11.0); NEUTROPHILS # (AUTO) 27.1 K/uL (1.8-8.9); NEUTROPHILS % (AUTO) 91.3 % (38.5-71.5); PLATELET COUNT (AUTO) 288 K/uL (152-348); RED BLOOD CELL COUNT(AUTO) 3.13 MIL/uL (4.06-5.63); RED CELL DISTRIBUTION WIDTH 14.6 % (12.1-16.2); WHITE BLOOD COUNT (AUTO) 29.6 K/uL (3.6-10.2)
[2023-11-13 00:46] LABS: CALCIUM 8.6 mg/dL (8.5-10.1); CARBON DIOXIDE 20 mmol/L (21-32); CHLORIDE 97 mmol/L (98-107); CREATININE 3.6 mg/dL (0.6-1.3); GLUCOSE 143 mg/dL (74-106); POTASSIUM 5.3 mmol/L (3.5-5.1); SODIUM SERUM 131 mmol/L (136-145); UREA NITROGEN, BLOOD 69 mg/dL (7-18)
[2023-11-13 00:48] LABS: DIFFERENTIAL COMMENT 1
[2023-11-13 00:59] LABS: ALANINE AMINOTRANSFERASE 12 U/L (16-63); ALBUMIN 2.8 g/dL (3.4-5.0); ALKALINE PHOSPHATASE 41 U/L (50-136); ASPARTATE AMINOTRANSFERASE 33 U/L (15-37); BILIRUBIN,DIRECT 0.2 mg/dL (0.0-0.2); BILIRUBIN,TOTAL 0.8 mg/dL (0.2-1.0); NT-PRO BNP 32747 pg/mL (0-125); TOTAL PROTEIN, SERUM 6.3 g/dL (6.4-8.2)
[2023-11-13 01:19] LABS: LACTIC ACID 8.1 mmol/L (0.4-2.0)
[2023-11-13 01:37] LABS: ABG BASE EXCESS -9.9 mmol/L (-2.0-2.0); ABG HCO3 13.8 mmol/L (22.0-26.0); ABG PCO2 22.9 mmHg (35.0-48.0); ABG PH 7.398 (7.340-7.440); ABG PO2 179.4 mmHg (75.0-100.0); ABG SITE RIGHT BRACHIAL; ABG TOTAL HEMOGLOBIN 7.4 G/dL (14.0-18.0); AaDO2 99.3 mmHg; COHb 0.4 % (0.0-3.9); MetHb 0.5 % (0.0-1.5); O2Hb 98.2 % (94.0-97.0)
[2023-11-13] MEDS ORDERED: CEFTRIAXONE 1 G in IV DEXTROSE 5% 50 ML IV ONE (01:45)
[2023-11-13] MEDS ORDERED: AZITHROMYCIN IV 500 MG in IV DEXTROSE 5% 250 ML IV ONE (01:45)
[2023-11-13] MEDS ORDERED: NOREPINEPHRINE BITARTRATE 4 MG/4 ML VIAL IV ONE ×4 (01:49→06:51)
[2023-11-13] MEDS ORDERED: AZITHROMYCIN 500MG/ D5W 250ML IVPB **ER PYXIS ONLY IV ONE (01:59)
[2023-11-13] MEDS ORDERED: CEFTRIAXONE /D5W 50ML IVPB **ER PYXIS IV ONE (01:59)
[2023-11-13] MEDS ORDERED: NOREPINEPHRINE BITARTRATE 8 MG in IV NORMAL SALINE 242 ML IV PRN (02:00)
[2023-11-13] MEDS ORDERED: MORPHINE SULFATE 4 MG/1 ML DISP.SYRIN IV ONE (02:15)
[2023-11-13] MEDS ORDERED: ONDANSETRON 4 MG/2 ML VIAL IV ONE (02:15)
[2023-11-13] MEDS ORDERED: ONDANSETRON 4 MG/2 ML VIAL ONE (02:18)
[2023-11-13] MEDS ORDERED: MORPHINE SULFATE 4 MG/1 ML DISP.SYRIN ONE (02:18)
[2023-11-13] MEDS ORDERED: IV NORMAL SALINE 500 ML BAG IV ONE ×2 (03:15→11:15)
[2023-11-13] MEDS ORDERED: ETOMIDATE 20 MG/10 ML VIAL IV ONE (06:15)
[2023-11-13] MEDS ORDERED: PROPOFOL 100 ML ONE (06:23)
[2023-11-13] MEDS ORDERED: PROPOFOL 100 ML IV PRN (06:30)
[2023-11-13] MEDS ORDERED: ROCURONIUM BROMIDE 50 MG/5 ML VIAL IV ONE (06:35)
[2023-11-13 07:32] LABS: BASOPHILS % (AUTO) 0.2 % (0.0-2.0); HEMATOCRIT 33.1 % (36.7-47.1); HEMOGLOBIN 10.7 g/dL (12.5-16.3); LYMPHOCYTES # (AUTO) 0.7 K/uL (0.8-4.8); LYMPHOCYTES % (AUTO) 2.9 % (20.5-51.5); MEAN CORPUSCULAR HEMOGLOBIN 31.5 uug (23.8-33.4); MEAN CORPUSCULAR HGB CONC 33 g/dL (32.5-36.3); MEAN CORPUSCULAR VOLUME 97.1 fL (73.0-96.2); MONOCYTES # (AUTO) 0.4 K/uL (0.1-1.30); MONOCYTES % (AUTO) 1.8 % (0.0-11.0); NEUTROPHILS # (AUTO) 23.2 K/uL (1.8-8.9); NEUTROPHILS % (AUTO) 95.1 % (38.5-71.5); PLATELET COUNT (AUTO) 286 K/uL (152-348); RED BLOOD CELL COUNT(AUTO) 3.41 MIL/uL (4.06-5.63); RED CELL DISTRIBUTION WIDTH 15.1 % (12.1-16.2); WHITE BLOOD COUNT (AUTO) 24.4 K/uL (3.6-10.2)
[2023-11-13 07:36] LABS: DIFFERENTIAL COMMENT 1
[2023-11-13] MEDS ORDERED: NOREPINEPHRINE BITARTRATE 32 MG in IV NORMAL SALINE 218 ML IV PRN (08:00)
[2023-11-13 08:05] LABS: CARBON DIOXIDE 18 mmol/L (21-32); CHLORIDE 97 mmol/L (98-107); CREATININE 3.8 mg/dL (0.6-1.3); GLUCOSE 149 mg/dL (74-106); POTASSIUM 5.5 mmol/L (3.5-5.1); SODIUM SERUM 128 mmol/L (136-145); UREA NITROGEN, BLOOD 73 mg/dL (7-18)
[2023-11-13 08:27] LABS: ABG PCO2 19.1 mmHg (35.0-48.0); ABG PH 7.512 (7.340-7.440); ABG PO2 141.8 mmHg (75.0-100.0); ABG SITE LEFT FEMORAL; ABG TOTAL HEMOGLOBIN 11.4 G/dL (14.0-18.0); AaDO2 99.1 mmHg; COHb 0.3 % (0.0-3.9); MetHb 0.3 % (0.0-1.5); O2Hb 98.2 % (94.0-97.0); VT, ABG 500 mL
[2023-11-13] MEDS: PROPOFOL 100 ML IV PRN ×3 (08:54→15:52)
[2023-11-13] MEDS ORDERED: PHENYLEPHRINE IV 100 MG in IV NORMAL SALINE 240 ML IV PRN (09:00)
[2023-11-13] MEDS: PHENYLEPHRINE IV 100 MG in IV NORMAL SALINE 240 ML IV PRN ×2 (09:04→16:03)
[2023-11-13] MEDS: NOREPINEPHRINE BITARTRATE 32 MG in IV NORMAL SALINE 218 ML IV PRN ×2 (09:05→16:01)
[2023-11-13] MEDS ORDERED: DOPamine IV DRIP 800 MG/250ML 250 ML IV PRN (10:00)
[2023-11-13] MEDS ORDERED: MAGNESIUM HYDROXIDE 30 ML LIQUID UDC PO PRN (11:00)
[2023-11-13] MEDS ORDERED: ONDANSETRON 4 MG/2 ML VIAL IV PRN (11:00)
[2023-11-13] MEDS ORDERED: ENOXAPARIN SODIUM 40 MG/0.4 ML DISP.SYRIN SQ SCH (11:00)
[2023-11-13] MEDS ORDERED: REMEDY ESSENTIAL ZINC PASTE 113 GM TP PRN (11:00)
[2023-11-13] MEDS ORDERED: ACETAMINOPHEN 325 MG TABLET PO PRN (11:00)
[2023-11-13] MEDS ORDERED: ZOLPIDEM 5 MG TABLET PO PRN (11:00)
[2023-11-13] MEDS ORDERED: VANCOMYCIN IV 1,000 MG in IV DEXTROSE 5% 250 ML IV ONE (11:00)
[2023-11-13] MEDS ORDERED: ENOXAPARIN SODIUM 30 MG/0.3 ML DISP.SYRIN SUBCUT SCH (11:01)
[2023-11-13] MEDS ORDERED: IV NORMAL SALINE 500 ML IV ONE (11:45)
[2023-11-13] MEDS ORDERED: PIPERACILLIN SODIUM/TAZOBACTAM 3.375 G in IV DEXTROSE 5% 50 ML IV SCH (12:00)
[2023-11-13] MEDS ORDERED: HYDROCORTISONE SOD SUCCINATE 100 MG/2 ML VIAL IV SCH (12:15)
[2023-11-13] MEDS ORDERED: VASOPRESSIN 40 UNIT in IV NORMAL SALINE 40 ML IV PRN ×2 (12:15→13:30)
[2023-11-13] MEDS ORDERED: IV D5/ 0.9% NACL 1,000 ML IV PRN (12:30)
[2023-11-13] MEDS ORDERED: LIDOCAINE 2%-EPI 1:100,000 20 ML VIAL IJ ONE (12:50)
[2023-11-13] MEDS ORDERED: FLUDROCORTISONE ACETATE 0.1 MG TABLET NG SCH (12:50)
[2023-11-13] MEDS ORDERED: CEFEPIME HCL 2 G in IV DEXTROSE 5% 100 ML IV SCH (13:00)
[2023-11-13] MEDS ORDERED: SUCCINYLCHOLINE CHLORIDE 200 MG/10 ML VIAL ONE ×2 (14:00→17:00)
[2023-11-13] MEDS ORDERED: ETOMIDATE 20 MG/10 ML VIAL ONE (17:00)
[2023-11-13] MEDS ORDERED: TAMSULOSIN HCL 0.4 MG CAP.SR.24H PO SCH (21:00)
[2023-11-13] MEDS ORDERED: CARBIDOPA/LEVODOPA CR 25-100MG TABLET.SA PO SCH (21:00)
[2023-11-14] MEDS ORDERED: ASPIRIN EC 81 MG TABLET.DR PO SCH (09:00)
[2023-11-14] MEDS ORDERED: APIXABAN 2.5 MG TABLET PO SCH (09:00)
[2023-11-14] MEDS ORDERED: PANTOPRAZOLE SODIUM 40 MG VIAL IV SCH (09:00)
== END 2023-11-13 20:20 | DRG 871 ==
LOC: ER 00:07 → TRANSITION 07:00 → CCU 11:13
PROVIDERS: ADMIT Student in an Organized Health Care Education/Training Program; ATTEND Student in an Organized Health Care Education/Training Program
PROC: 5A09357 Assistance with Respiratory Ventilation, Less than 24 Consecutive Hours, Continuous Positive Airway Pressure (ICD-10-PCS; principal; 2023-11-13)
PROC: 5A1935Z Respiratory Ventilation, Less than 24 Consecutive Hours (ICD-10-PCS; 2023-11-13)
PROC: 0BH17EZ Insertion of Endotracheal Airway into Trachea, Via Natural or Artificial Opening (ICD-10-PCS; 2023-11-13)
PROC: 06HY33Z Insertion of Infusion Device into Lower Vein, Percutaneous Approach (ICD-10-PCS; 2023-11-13)
DX: A41.9 Sepsis, unspecified organism (principal); I21.A1 Myocardial infarction type 2; J18.9 Pneumonia, unspecified organism; J69.0 Pneumonitis due to inhalation of food and vomit; J96.21 Acute and chronic respiratory failure with hypoxia; R65.21 Severe sepsis with septic shock; N17.0 Acute kidney failure with tubular necrosis; I48.20 Chronic atrial fibrillation, unspecified; E87.21 Acute metabolic acidosis; E87.1 Hypo-osmolality and hyponatremia; G91.2 (Idiopathic) normal pressure hydrocephalus; E44.0 Moderate protein-calorie malnutrition; I13.0 Hypertensive heart and chronic kidney disease with heart failure and stage 1 through stage 4 chronic kidney disease, or unspecified chronic kidney disease; I50.32 Chronic diastolic (congestive) heart failure; I08.3 Combined rheumatic disorders of mitral, aortic and tricuspid valves; E87.5 Hyperkalemia; Z66 Do not resuscitate; Z95.2 Presence of prosthetic heart valve; Z79.899 Other long term (current) drug therapy; E78.00 Pure hypercholesterolemia, unspecified; N40.0 Benign prostatic hyperplasia without lower urinary tract symptoms; G20.A1 Parkinson's disease without dyskinesia, without mention of fluctuations; Z68.26 Body mass index [BMI] 26.0-26.9, adult; N18.9 Chronic kidney disease, unspecified; Z79.01 Long term (current) use of anticoagulants; Z79.82 Long term (current) use of aspirin
CPT/HCPCS: 36415; 36600; 71045; 83605; 84484; 85025; 85730; 87040; 87077; 93005; 94002; 99082-TC; A4606; A9150; G0378; J0330; J0456; J0692; J0696; J1650; J1720; J1940; J2270; J2405; J3370; J3490; J7040; J7042; J7050